=== PATIENT | female | born 1950 | race Caucasian/White ===

== ENCOUNTER 2018-05-12 10:19 | Emergency (ER) | payer MEDICARE | END 2018-05-12 11:17 | disposition home or self-care (01) | LOC: NAV ERS 10:19 | DX: L03.312 Cellulitis of back [any part except buttock and flank] (principal); E11.9 Type 2 diabetes mellitus without complications; I10 Essential (primary) hypertension; F41.9 Anxiety disorder, unspecified; Z79.899 Other long term (current) drug therapy | CPT/HCPCS: 99283 ==

== ENCOUNTER 2019-06-09 13:50 | Emergency (ER) | payer MEDICARE ==
[2019-06-09] MEDS ORDERED: Sodium Chloride 0.9% 1,000 ML ONE (14:23)
[2019-06-09 15:03] LABS: Hemoglobin 13.6 g/dL (12.0-16.0); Mean Corpuscular HGB CONC 30.3 g/dL (32.0-36.0); Mean Corpuscular Hemoglobin 27.3 pg (27.0-31.0); Mean Corpuscular Volume 90.2 fL (78.0-98.0); Mean Platelet Volume 5.9 fL (7.4-10.4); Platelet Count 333 thou/uL (130-400); RBC Distribution Width 13.9 % (11.5-14.5); White Blood Cell (WBC) Count 12.9 thou/uL (4.8-10.8)
[2019-06-09 15:23] LABS: ALT (SGPT) 50 U/L (8-55); AST (SGOT) 61 U/L (5-34); Albumin 4.5 g/dL (3.4-4.8); Alkaline Phosphatase 121 U/L (40-150); Anion Gap 21 mmol/L (10-20); BUN (Urea Nitrogen) 20 mg/dL (9.8-20.1); Bilirubin, Total 0.5 mg/dL (0.2-1.2); Calc. Creatinine Clearance 0 mL/min (70-130); Calcium 10.5 mg/dL (7.8-10.44); Carbon Dioxide 24 mmol/L (23-31); Chloride 99 mmol/L (98-107); Estimated GFR-MDRD 45; Globulin 3.5 g/dL (2.4-3.5); Glucose 184 mg/dL (80-115); Lipase 45 U/L (8-78); Sodium 140 mmol/L (136-145)
[2019-06-09] MEDS ORDERED: Ondansetron ODT 4 MG TAB ONE (15:28)
[2019-06-09 15:41] LABS: Band 14 % (5-11); Eosinophils 1 % (0-10); Lymphocytes 14 % (21-51); MDiff Complete? YES; Monocytes 3 % (0-10); Neutrophil 68 % (42-75); Platelet Morphology Comment Appears Adequate; RBC Morphology Normal
[2019-06-09] MEDS ORDERED: Lidocaine 1% (PF) 30 ML VIAL ONE (16:38)
--- NOTE | 2019-06-09 17:33 | CT ---
CT OF THE ABDOMEN AND PELVIS WITHOUT CONTRAST: 06/09/19 COMPARISON: None. HISTORY: Nausea, vomiting, and diffuse abdominal pain that began 1.5 hours prior to arrival. TECHNIQUE: Multiple contiguous axial images were obtained in a CT of the abdomen and pelvis without contrast. Co leonid reformats were performed. FINDINGS: A calcified gallstone is seen in the dependent aspect of the gallbladder. A 3.9 cm hypodensity in the left kidney likely represents a cyst. There is mild diffuse fatty infiltration of the liver. Calcifi cations in the hilar regions of both kidneys are likely vascular calcifications. The adrenal glands, spleen, and pancreas are unremarkable, although evaluation is limited without IV contrast. The reprod uctive organs are unremarkable. Scattered diverticula are seen in the colon. The small bowel and appe ndix are unremarkable. No abdominal or pelvic lymphadenopathy are seen. Atherosclerotic calcifications are seen in the aorta. The visualized inferior thorax and abdominal w all soft tissues are unremarkable. IMPRESSION: 1. Left renal cyst. 2. Cholelithiasis. 3. Fatty liver. POS: CET
== END 2019-06-09 17:25 | disposition short-term general hospital (02) ==
LOC: NAV ERS 13:50
DX: E86.0 Dehydration (principal); R19.7 Diarrhea, unspecified; R79.89 Other specified abnormal findings of blood chemistry; R11.2 Nausea with vomiting, unspecified; B02.9 Zoster without complications; I10 Essential (primary) hypertension; E11.9 Type 2 diabetes mellitus without complications; F41.9 Anxiety disorder, unspecified; Z79.899 Other long term (current) drug therapy
CPT/HCPCS: 36415; 74176; 80053; 83605; 83690; 84484; 85025; 93005; 96372; J2001; J7050; Q0162

== ENCOUNTER 2024-12-04 15:59 | Emergency (ER) | payer MEDICARE, OTHER ==
[2024-12-04 17:01] LABS: ALT (SGPT) 20 U/L (Less than 34); AST (SGOT) 31 U/L (11-34); Albumin 3.1 g/dL (3.1-4.5); Alkaline Phosphatase 138 U/L (40-110); Anion Gap 13 mmol/L (10-20); BUN (Urea Nitrogen) 21 mg/dL (9.8-20.1); Bilirubin, Total 0.9 mg/dL (0.3-1.2); Calc. Creatinine Clearance 0 mL/min (70-130); Calcium 9.4 mg/dL (7.8-10.44); Carbon Dioxide 23 mmol/L (23-31); Chloride 107 mmol/L (98-107); Estimated GFR 39; Globulin 3.9 g/dL (2.4-3.5); Glucose 196 mg/dL (83-110); Potassium 3.7 mmol/L (3.5-5.1); Sodium 139 mmol/L (136-145)
[2024-12-04 17:03] LABS: #Eosinophils 0.2 thou/uL (0.0-0.7); #Monocytes 0.5 thou/uL (0.11-0.59); #Neutrophils 2.1 thou/uL (1.40-6.50); %Basophils 1.1 % (0.0-1.0); %Eosinophils 4.8 % (0.0-10.0); %Lymphocytes 26.8 % (21.0-51.0); %Monocytes 12.1 % (0.0-10.0); %Neutrophils 55.3 % (42.0-75.0); Hematocrit 22.7 % (36.0-47.0); Hemoglobin 6.5 g/dL (12.0-16.0); Mean Corpuscular HGB CONC 28.5 g/dL (32.0-36.0); Mean Corpuscular Hemoglobin 23.4 pg (27.0-31.0); Mean Platelet Volume 5.8 fL (7.4-10.4); Platelet Count 179 10x3/uL (130-400); Red Blood Cell (RBC) Count 2.76 mill/uL (4.20-5.40); White Blood Cell (WBC) Count 3.8 10x3/uL (4.8-10.8)
[2024-12-04] MEDS ORDERED: Nitroglycerin 2% Ointment 1 INCH/1 GM Packet ONE (17:10)
[2024-12-04] MEDS ORDERED: Clopidogrel Bisulfate 75 MG TAB ONE (17:10)
[2024-12-04] MEDS ORDERED: Furosemide 40 MG (4 mL) VIAL ONE (17:10)
== END 2024-12-04 20:10 | disposition short-term general hospital (02) ==
LOC: NAV ERS 15:59
DX: I11.0 Hypertensive heart disease with heart failure (principal); I50.9 Heart failure, unspecified; R79.89 Other specified abnormal findings of blood chemistry; R01.1 Cardiac murmur, unspecified; D64.9 Anemia, unspecified; E11.9 Type 2 diabetes mellitus without complications; Z79.4 Long term (current) use of insulin; Z79.899 Other long term (current) drug therapy
CPT/HCPCS: 71045; 80053; 83880; 84484; 85025; 93005; 94760; 96374; J1940